=== PATIENT | male | born 1950 | race Caucasian/White ===

== ENCOUNTER 2019-03-06 14:09 | Outpatient (CLI) | payer MEDICARE ==
--- NOTE | 2019-03-06 14:50 | ULT ---
Venous duplex sonogram right lower extremity HISTORY: Right leg pain and edema. FINDINGS: The right common femoral vein and greater saphenous junction were evaluated along with the femoral, deep femoral, popliteal, and posterior tibial veins. There is good color and spectral Doppler flow, compression, and augmentation. IMPRESSION: Normal exam.
== END 2019-03-06 14:10 | disposition home or self-care (01) ==
LOC: SCSULT 14:09
PROVIDERS: ATTEND Family Medicine
DX: M79.671 Pain in right foot (principal); R60.0 Localized edema

== ENCOUNTER 2019-03-06 14:58 | Outpatient (CLI) | payer MEDICARE ==
--- NOTE | 2019-03-06 17:49 | MRI ---
MRI RIGHT FOOT: Date: 03-06-2019 Provided Clinical History: Pain and swelling. FINDINGS: There is focal high grade partial thickness attenuating tear involving the peroneus longus tendon jus t proximal to its course beneath the cuboid. There is associated marrow edema within the lateral aspe cts of the cuboid. This is at and slightly distal to the level of what is most likely an os peroneum. The dorsal extensor and plantar flexor tendons demonstrate an intact MR appearance. Regional marrow signal appears otherwise normal. There is a small ganglion cyst measuring about 8 mm at the dorsal aspect of the fourth TMT joint. The plantar aponeurosis appears normal. The courses of the regional major neurovascular structures ap pear normal. The MTP joint capsules appear intact. IMPRESSION: Findings compatible with high grade partial thickness tear involving the peroneus longus tendon at an d slightly distal to the level of what is presumed to be an os peroneum. Edema within the adjacent la teral cuboid suggests an associated friction syndrome. POS: TPC
== END 2019-03-06 14:59 | disposition home or self-care (01) ==
LOC: SCSMRI 14:58
PROVIDERS: ATTEND Family Medicine
DX: M25.571 Pain in right ankle and joints of right foot (principal); M51.16 Intervertebral disc disorders with radiculopathy, lumbar region; R60.0 Localized edema

== ENCOUNTER 2019-07-12 10:32 | Outpatient (CLI) | payer MEDICARE ==
--- NOTE | 2019-07-12 11:02 | RAD ---
EXAM: XR Pelvis AP STANDARD PROVIDED CLINICAL HISTORY: Left leg pain/knee pain for one month. COMPARISON: None FINDINGS: No fracture or dislocation is seen. Limbus overlie the pelvis with vascular calcific lesions seen in the femoral arteries. Multiple surgical clips overlie the medial left thigh. No other findings. IMPRESSION: No acute osseous abnormality.
--- NOTE | 2019-07-12 12:34 | RAD ---
LEFT KNEE 4 VIEWS: Date: 07/12/2019 HISTORY: Knee pain. FINDINGS: Joint spaces are maintained. Mild degenerative change. Mild spurring from the patella. No evidence of acute fracture. No evidence of joint effusion. Small exostosis is seen arising from the lateral aspect of the distal femur just above the condyle. IMPRESSION: Mild degenerative change. No acute process. POS: AGW
--- NOTE | 2019-07-12 12:35 | RAD ---
LEFT HIP 2 VIEWS: Date: 07/12/2019 HISTORY: Pain. FINDINGS: Femoral head contour normally maintained. Joint space preserved. No significant degenerative change. No fracture or acute abnormality. IMPRESSION: Unremarkable left hip. POS: AGW
== END 2019-07-12 10:33 | disposition home or self-care (01) ==
LOC: SCSRAD 10:32
PROVIDERS: ATTEND Chiropractor
DX: M25.562 Pain in left knee (principal); M79.605 Pain in left leg; M25.552 Pain in left hip; R10.2 Pelvic and perineal pain; M17.12 Unilateral primary osteoarthritis, left knee
CPT/HCPCS: 72170

== ENCOUNTER 2020-10-03 19:00 | Outpatient (CLI) | payer MEDICARE | END 2020-10-03 19:01 | disposition home or self-care (01) | LOC: SLEEPLAB 19:00 | PROVIDERS: ATTEND Internal Medicine Critical Care Medicine | DX: G47.33 Obstructive sleep apnea (adult) (pediatric) (principal); R06.83 Snoring; G47.10 Hypersomnia, unspecified; I25.10 Atherosclerotic heart disease of native coronary artery without angina pectoris; I21.9 Acute myocardial infarction, unspecified; E66.9 Obesity, unspecified; Z68.33 Body mass index [BMI] 33.0-33.9, adult; Z95.0 Presence of cardiac pacemaker | CPT/HCPCS: 95811 ==

== ENCOUNTER → 2024-02-15 | Day surgery (SDC) | payer MEDICARE | LOC: ULT 08:19 | PROVIDERS: ATTEND Specialist | DX: J90 Pleural effusion, not elsewhere classified (principal); I13.0 Hypertensive heart and chronic kidney disease with heart failure and stage 1 through stage 4 chronic kidney disease, or unspecified chronic kidney disease; I50.20 Unspecified systolic (congestive) heart failure; N18.9 Chronic kidney disease, unspecified; I25.10 Atherosclerotic heart disease of native coronary artery without angina pectoris; I25.2 Old myocardial infarction; I25.5 Ischemic cardiomyopathy; I34.2 Nonrheumatic mitral (valve) stenosis; I48.0 Paroxysmal atrial fibrillation; K21.9 Gastro-esophageal reflux disease without esophagitis; G47.33 Obstructive sleep apnea (adult) (pediatric); Z90.49 Acquired absence of other specified parts of digestive tract; Z98.890 Other specified postprocedural states; Z86.73 Personal history of transient ischemic attack (TIA), and cerebral infarction without residual deficits; Z95.810 Presence of automatic (implantable) cardiac defibrillator; Z95.1 Presence of aortocoronary bypass graft; Z79.890 Hormone replacement therapy; Z79.02 Long term (current) use of antithrombotics/antiplatelets; Z79.01 Long term (current) use of anticoagulants; Z79.899 Other long term (current) drug therapy | CPT/HCPCS: 71046; 76604 ==